=== PATIENT | male | born 1940 | race Caucasian/White ===

== ENCOUNTER 2021-02-23 14:05 | Inpatient (IN) ==
[2021-02-23] MEDS ORDERED: Azithromycin 500 MG in 0.9 % Sodium Chloride 250 ML IVPB ONE (14:31)
[2021-02-23] MEDS ORDERED: Ipratropium/Albuterol Neb 3 ML IH ONE (14:32)
[2021-02-23 14:45] LABS: Basophils % 0.2 %; Hematocrit 40.7 % (37.5-50.1); Immature Granulocytes % 0.4 % (0-4); Immature Platelets 2.1 % (1.1-6.1); Lymphocytes # 0.7 K/mcL (0.6-4.6); Lymphocytes % 13.9 %; Mean Corpuscular HGB Conc 34.4 g/dL (31.6-35.5); Mean Platelet Volume 9.3 fL (9.4-12.4); Monocytes # 0.4 K/mcL (0.0-1.3); Monocytes % 8.5 %; Neutrophils # 3.9 K/mcL (1.6-8.9); Platelet Count 144 K/mcL (140-400); Red Blood Count 4.24 M/mcL (4.19-5.50); Red Cell Distribution Width 12.6 % (11.5-14.5)
[2021-02-23 14:47] LABS: INR 1.2; Prothrombin Time 13.3 Seconds (9.4-12.1)
[2021-02-23 14:50] LABS: Activated Partial Thrombo Time 28.8 Seconds (26.0-36.0)
[2021-02-23 15:08] LABS: BUN/Creatinine Ratio 18 (6-26); Blood Urea Nitrogen 13 mg/dL (8-23); Calcium 8.3 mg/dL (8.6-10.3); Carbon Dioxide 32 mEq/L (23-29); Chloride 95 mEq/L (98-107); Glucose 136 mg/dL (70-105); Osmolality,Calculated 278 (280-300); Potassium 3.4 mEq/L (3.5-5.1); Sodium 133 mEq/L (136-145); Troponin I 0.09 ng/mL (< 0.04); eGFR For African Americans > 60 (> 60); eGFR For Non-African Americans > 60 (> 60)
[2021-02-23 15:22] LABS: Bilirubin,Urine Negative (Negative); Blood,Urine Negative (Negative); Clarity,Urine Clear (Clear); Color,Urine Light-Yellow (Yellow); Glucose,Urine (UA) Normal (Normal); Ketones,Urine Trace mg/dL (Negative); Leukocyte Esterase,Urine Negative (Negative); Nitrite,Urine Negative (Negative); PH,Urine 6.5 pH Units (5.0-8.0); Protein,Urine Trace mg/dL (Neg-Trace); Specific Gravity,Urine 1.024 (1.010-1.025); Urobilinogen,Urine Normal (Normal)
[2021-02-23] MEDS ORDERED: Isovue-370 500 ML BOTTLE IVP ONE (15:25)
[2021-02-23 15:38] LABS: Influenza A PCR Negative (Negative); Influenza B PCR Negative (Negative); Resp. Syncytial Virus PCR Negative (Negative)
[2021-02-23 15:43] LABS: SARS-CoV-2 by PCR (In House) Positive (Negative)
[2021-02-23] MEDS ORDERED: cefTRIAXone 1,000 MG in 0.9 % Sodium Chloride Mini Bag 100 ML IVPB ONE (16:43)
[2021-02-23] MEDS ORDERED: Naloxone 0.4 MG/ML INJ IVP PRN (16:53)
[2021-02-23] MEDS ORDERED: *HR* HYDROcodone/Acet 5/325 mg TABLET PO PRN (16:53)
[2021-02-23] MEDS ORDERED: Ondansetron 4 MG/2 ML VIAL IVP PRN (16:53)
[2021-02-23] MEDS ORDERED: Aspirin 325 MG TABLET PO ONE (16:53)
[2021-02-23] MEDS ORDERED: Albuterol 2.5 MG/3 ML NEBULIZER IH PRN (16:56)
[2021-02-23] MEDS ORDERED: Ipratropium 1 PUFF INHALER IH PRN (16:56)
[2021-02-23 17:23] LABS: C-Reactive Protein 36 mg/L (Less than 10)
[2021-02-23] MEDS: Doxycycline 100 MG in 0.9 % Sodium Chloride Mini Bag 100 ML IVPB SCH (23:37)
[2021-02-23] MEDS: Nicotine 21 MG PATCH.TD24 TD SCH (23:38)
[2021-02-23] MEDS: Clotrimazole 1% CRM 15 GM TUBE TP SCH (23:38)
[2021-02-24] MEDS ORDERED: Dextrose Gel 15 GM/37.5 ML TUBE PO PRN ×2 (01:01)
[2021-02-24] MEDS ORDERED: *HR* Dextrose 50 % in Water (Syg) 50 ML SYRINGE IVP PRN (01:01)
[2021-02-24] MEDS ORDERED: D5% in Water 1,000 ML IVC PRN (01:01)
[2021-02-24] MEDS: *HR* Enoxaparin 40 MG/0.4 ML SYRINGE SQ SCH (06:49)
[2021-02-24] MEDS: Insulin LISPRO 300 UNITS/3 ML VIAL SUBQ SCH ×4 (09:13→22:53)
[2021-02-24] MEDS: Clotrimazole 1% CRM 15 GM TUBE TP SCH ×2 (10:55→20:25)
[2021-02-24] MEDS: Doxycycline 100 MG in 0.9 % Sodium Chloride Mini Bag 100 ML IVPB SCH (11:01)
[2021-02-24] MEDS: levoFLOXacin 750 MG/150 ML 750 MG/150 ML BAG IVPB SCH (14:04)
[2021-02-24 19:28] LABS: Basophils % 0.2 %; Hematocrit 44.3 % (37.5-50.1); Hemoglobin 15.1 g/dL (12.9-16.9); Immature Granulocytes % 0.4 % (0-4); Lymphocytes # 0.9 K/mcL (0.6-4.6); Mean Corpuscular HGB Conc 34.1 g/dL (31.6-35.5); Mean Corpuscular Hemoglobin 32.7 pg (28.0-33.3); Mean Corpuscular Volume 95.9 fL (83.0-100.0); Mean Platelet Volume 9.7 fL (9.4-12.4); Monocytes # 0.4 K/mcL (0.0-1.3); Monocytes % 8.4 %; Neutrophils # 3.4 K/mcL (1.6-8.9); Platelet Count 132 K/mcL (140-400); Red Blood Count 4.62 M/mcL (4.19-5.50); Red Cell Distribution Width 12.8 % (11.5-14.5); White Blood Count 4.8 K/mcL (4.3-11.1)
[2021-02-24 19:44] LABS: Alanine Aminotransferase 12 Units/L (7-52); Albumin 3.4 g/dL (3.5-5.7); Albumin/Globulin Ratio 1.2 (1.1-2.2); Alkaline Phosphatase 61 Units/L (34-104); Aspartate Amino Transferase 18 Units/L (13-39); BUN/Creatinine Ratio 22 (6-26); Bilirubin,Total 0.4 mg/dL (0.3-1.0); Blood Urea Nitrogen 13 mg/dL (8-23); Calcium 8.7 mg/dL (8.6-10.3); Carbon Dioxide 31 mEq/L (23-29); Chloride 99 mEq/L (98-107); Globulin 2.8 g/dL (2.4-3.5); Glucose 187 mg/dL (70-105); Magnesium 1.8 mg/dL (1.6-2.6); Osmolality,Calculated 289 (280-300); Phosphorous 2.7 mg/dL (2.7-4.5); Potassium 3.9 mEq/L (3.5-5.1); Sodium 137 mEq/L (136-145); Total Protein 6.2 g/dL (6.4-8.9); eGFR For African Americans > 60 (> 60); eGFR For Non-African Americans > 60 (> 60)
[2021-02-25] MEDS: Acetaminophen 325 MG TABLET PO PRN (00:40)
[2021-02-25] MEDS: Nicotine 21 MG PATCH.TD24 TD SCH ×2 (00:44→21:21)
[2021-02-25] MEDS: *HR* Enoxaparin 40 MG/0.4 ML SYRINGE SQ SCH (06:21)
[2021-02-25 07:31] LABS: Hemoglobin 14.9 g/dL (12.9-16.9); Mean Corpuscular HGB Conc 33.9 g/dL (31.6-35.5); Mean Corpuscular Hemoglobin 33.6 pg (28.0-33.3); Mean Corpuscular Volume 99.3 fL (83.0-100.0); Mean Platelet Volume 9.4 fL (9.4-12.4); Platelet Count 101 K/mcL (140-400); Red Blood Count 4.43 M/mcL (4.19-5.50); Red Cell Distribution Width 12.8 % (11.5-14.5); White Blood Count 5.6 K/mcL (4.3-11.1)
[2021-02-25] MEDS: levoFLOXacin 750 MG/150 ML 750 MG/150 ML BAG IVPB SCH (08:20)
[2021-02-25 08:25] LABS: BUN/Creatinine Ratio 19 (6-26); Blood Urea Nitrogen 11 mg/dL (8-23); Calcium 8.1 mg/dL (8.6-10.3); Carbon Dioxide 23 mEq/L (23-29); Chloride 101 mEq/L (98-107); Glucose 114 mg/dL (70-105); Osmolality,Calculated 280 (280-300); Potassium 3.7 mEq/L (3.5-5.1); Sodium 135 mEq/L (136-145); eGFR For African Americans > 60 (> 60); eGFR For Non-African Americans > 60 (> 60)
[2021-02-25] MEDS: Insulin LISPRO 300 UNITS/3 ML VIAL SUBQ SCH ×4 (09:03→21:19)
[2021-02-25] MEDS: Clotrimazole 1% CRM 15 GM TUBE TP SCH ×2 (09:04→21:21)
[2021-02-25] MEDS ORDERED: Artificial Tears SOLN 15 ML BOTTLE BOTH EYES PRN (13:19)
[2021-02-26] MEDS: *HR* Enoxaparin 40 MG/0.4 ML SYRINGE SQ SCH (06:22)
[2021-02-26] MEDS: Aspirin Enteric Coated 81 MG Tablet PO SCH (08:14)
[2021-02-26] MEDS: levoFLOXacin 750 MG/150 ML 750 MG/150 ML BAG IVPB SCH (08:15)
[2021-02-26] MEDS: Insulin LISPRO 300 UNITS/3 ML VIAL SUBQ SCH ×3 (09:22→17:44)
[2021-02-26] MEDS: Clotrimazole 1% CRM 15 GM TUBE TP SCH (09:23)
[2021-02-26] MEDS: Nicotine 21 MG PATCH.TD24 TD SCH (21:05)
[2021-02-26] MEDS: QUEtiapine Fumarate 25 MG TABLET PO SCH (21:05)
[2021-02-27] MEDS: Clotrimazole 1% CRM 15 GM TUBE TP SCH ×3 (00:30→20:44)
[2021-02-27] MEDS: Insulin LISPRO 300 UNITS/3 ML VIAL SUBQ SCH ×5 (00:30→20:45)
[2021-02-27] MEDS: *HR* Enoxaparin 40 MG/0.4 ML SYRINGE SQ SCH (05:12)
[2021-02-27 08:08] LABS: Hematocrit 43.1 % (37.5-50.1); Hemoglobin 14.9 g/dL (12.9-16.9); Mean Corpuscular HGB Conc 34.6 g/dL (31.6-35.5); Mean Corpuscular Volume 95.4 fL (83.0-100.0); Mean Platelet Volume 9.8 fL (9.4-12.4); Platelet Count 109 K/mcL (140-400); Red Blood Count 4.52 M/mcL (4.19-5.50); Red Cell Distribution Width 12.6 % (11.5-14.5); White Blood Count 5.1 K/mcL (4.3-11.1)
[2021-02-27 08:24] LABS: BUN/Creatinine Ratio 20 (6-26); Blood Urea Nitrogen 12 mg/dL (8-23); Carbon Dioxide 37 mEq/L (23-29); Chloride 99 mEq/L (98-107); Glucose 98 mg/dL (70-105); Potassium 3.9 mEq/L (3.5-5.1); Sodium 140 mEq/L (136-145); eGFR For African Americans > 60 (> 60); eGFR For Non-African Americans > 60 (> 60)
[2021-02-27 08:25] LABS: Osmolality,Calculated 290 (280-300)
[2021-02-27] MEDS: levoFLOXacin 750 MG/150 ML 750 MG/150 ML BAG IVPB SCH (09:37)
[2021-02-27] MEDS: Aspirin Enteric Coated 81 MG Tablet PO SCH (09:43)
[2021-02-27] MEDS: QUEtiapine Fumarate 25 MG TABLET PO SCH (20:44)
[2021-02-27] MEDS: Nicotine 21 MG PATCH.TD24 TD SCH (20:44)
[2021-02-28] MEDS: *HR* Enoxaparin 40 MG/0.4 ML SYRINGE SQ SCH (06:20)
[2021-02-28] MEDS: Insulin LISPRO 300 UNITS/3 ML VIAL SUBQ SCH ×4 (09:47→20:40)
[2021-02-28] MEDS: Aspirin Enteric Coated 81 MG Tablet PO SCH (09:54)
[2021-02-28] MEDS: levoFLOXacin 750 MG/150 ML 750 MG/150 ML BAG IVPB SCH (09:55)
[2021-02-28] MEDS: Clotrimazole 1% CRM 15 GM TUBE TP SCH ×2 (09:56→20:40)
[2021-02-28] MEDS: Acetaminophen 325 MG TABLET PO PRN (17:23)
[2021-02-28] MEDS: QUEtiapine Fumarate 25 MG TABLET PO SCH (20:58)
[2021-03-01] MEDS: *HR* Enoxaparin 40 MG/0.4 ML SYRINGE SQ SCH (05:30)
[2021-03-01] MEDS: levoFLOXacin 750 MG/150 ML 750 MG/150 ML BAG IVPB SCH (08:36)
[2021-03-01] MEDS: Acetaminophen 325 MG TABLET PO PRN ×2 (08:37→19:50)
[2021-03-01] MEDS: Aspirin Enteric Coated 81 MG Tablet PO SCH (08:37)
[2021-03-01] MEDS: Clotrimazole 1% CRM 15 GM TUBE TP SCH ×2 (08:39→19:56)
[2021-03-01] MEDS: Insulin LISPRO 300 UNITS/3 ML VIAL SUBQ SCH ×4 (08:43→19:58)
[2021-03-01] MEDS: QUEtiapine Fumarate 25 MG TABLET PO SCH (19:50)
[2021-03-01] MEDS: Nicotine 21 MG PATCH.TD24 TD SCH ×2 (19:51→20:48)
[2021-03-02] MEDS: *HR* Enoxaparin 40 MG/0.4 ML SYRINGE SQ SCH (05:18)
[2021-03-02] MEDS: Aspirin Enteric Coated 81 MG Tablet PO SCH (09:56)
[2021-03-02] MEDS: Insulin LISPRO 300 UNITS/3 ML VIAL SUBQ SCH ×4 (09:57→20:51)
[2021-03-02] MEDS: Clotrimazole 1% CRM 15 GM TUBE TP SCH ×2 (09:57→23:31)
[2021-03-02] MEDS: Nicotine 21 MG PATCH.TD24 TD SCH (20:50)
[2021-03-02] MEDS: QUEtiapine Fumarate 25 MG TABLET PO SCH (20:51)
[2021-03-03] MEDS: *HR* Enoxaparin 40 MG/0.4 ML SYRINGE SQ SCH (05:28)
[2021-03-03] MEDS: Clotrimazole 1% CRM 15 GM TUBE TP SCH (08:13)
[2021-03-03] MEDS: Aspirin Enteric Coated 81 MG Tablet PO SCH (08:13)
[2021-03-03] MEDS: Insulin LISPRO 300 UNITS/3 ML VIAL SUBQ SCH ×2 (08:37→12:49)
[2021-03-03 12:20] VITALS: BP 174/78; PULSE 80; TEMP 98; O2SAT 99
== END 2021-03-03 15:40 | disposition home health service (06) | DRG 177 ==
LOC: 3NENU 14:05 → EMEROOARM 14:05 → 3NENU 19:45 → SUATTDRO 02-24 12:33
PROVIDERS: ADMIT Family Medicine; ATTEND Student in an Organized Health Care Education/Training Program